=== PATIENT | female | born 1990 | race Caucasian/White ===

== ENCOUNTER 2017-01-30 23:32 | Emergency (ER) | payer OTHER ==
[~2017-01-30] VITALS: Ht 154.9 cm; Wt 52.4 kg
[2017-01-30 23:32] VITALS: BP 114/70
[2017-01-31] MEDS ORDERED: PERC5TAB6 PO (00:01)
[2017-01-31] MEDS ORDERED: TYLE500T78 PO (00:01)
== END 2017-01-31 02:47 | disposition left against medical advice (07) ==
LOC: M ED 01-31 01:40
DX: R10.9 Unspecified abdominal pain (principal); Z53.29 Procedure and treatment not carried out because of patient's decision for other reasons

== ENCOUNTER 2017-03-28 21:31 | Emergency (ER) | payer OTHER ==
[~2017-03-28] VITALS: Ht 154.9 cm; Wt 47.7 kg
[2017-03-28 21:31] VITALS: BP 104/73
[~2017-03-28 21:31] MED LIST: PERC5TAB12 PO; TYLE500T78 PO
== END 2017-03-28 22:46 | disposition home or self-care (01) ==
LOC: M ED 21:31
DX: S61.216A Laceration without foreign body of right little finger without damage to nail, initial encounter (principal); X58.XXXA Exposure to other specified factors, initial encounter; Y92.89 Other specified places as the place of occurrence of the external cause; Y93.89 Activity, other specified; Y99.8 Other external cause status